=== PATIENT | female | born 1980 | race African-American/Black ===

== ENCOUNTER 2022-06-13 15:02 | Emergency (ER) | payer OTHER, SELFPAY | END 2022-06-14 04:55 | disposition left against medical advice (07) | DX: Z53.21 Procedure and treatment not carried out due to patient leaving prior to being seen by health care provider (principal) | CPT/HCPCS: 99199 ==

== ENCOUNTER 2022-06-20 11:21 | Emergency (ER) | payer OTHER, SELFPAY ==
--- NOTE | ~2022-06-20 | US_ITS ---
EXAMINATION: US OB <= 14 weeks fetus DATE: 06/20/2022 15:32 INDICATION: Right-sided bladder abdominal pain during first trimester TECHNIQUE: Real-time pelvic ultrasound utilizing transabdominal probe was performed. The josef rubin radiologist was not present for the study. COMPARISON: None. FINDINGS: The uterus measures 10.2 x 5.0 x 5.5 cm. The endometrial complex measures 1.7 cm. No evident intraut erine gestational sac. The right ovary measures 4.5 x 2.7 x 2.3 cm. The left ovary measures 3.1 x 1.8 x 1.9 cm. There are sm all anechoic cysts/follicles in both ovaries measuring 1.4 cm diameter on the right and 1.3 cm in elva meter at the left ovary. Vascular flow identified in both ovaries on color Doppler. There is no free fluid in the pelvis. IMPRESSION: 1. No evident intrauterine gestational sac for which differential is early , failed pregnanc y or ectopic . Recommend correlation with serial beta-hCG levels. Reviewed, dictated and finalized at location A. [facility] IMPRESSION: 1. No evident intrauterine gestational sac for which differential is early preg uma, failed or ectopic . Recommend correlation with serial beta-hCG levels.
[2022-06-20 11:27] VITALS: BP 130/85; PULSE 114; RESP 20; TEMP 36.5; O2SAT 100
--- NOTE | 2022-06-20 13:05 | ED.GENADULT ---
HPI - General Adult General Chief complaint: Abdominal Pain Stated complaint: abd pain Time Seen by Provider: 06/20/22 12:57 Source: RN notes reviewed History of Present Illness HPI narrative: Patient presents emergency department from home for abdominal pain. Patient states it is began approximately 2 weeks ago. States the pain is located in the right side of the abdomen does not radiate and states pain became worse last night and today the pain is described as sharp and stabbing. She states she has not taken anything for the pain she denies any fevers or chills nausea vomiting diarrhea or any other symptoms per Related Data Allergies Allergy/AdvReac Type Severity Reaction Status Date / Time No Known Allergies Allergy Verified 06/20/22 11:30 Review of Systems Review of Systems: Gen.: Denies fevers or chills ENT: Denies congestion Respiratory: Denies shortness of breath or cough CV: Denies chest pain or palpitations GI: See HPI denies burning, urgency, frequency or hematuria Musculoskeletal: Denies back pain or muscle pain Neuro: Denies numbness, tingling, weakness or focal weakness Skin: Denies rash Except as documented, all other systems reviewed and negative [facility] Past Medical History Medical History (Updated 06/20/22 @ 17:18 by Neville Castro DO) Patient denies significant medical history Social History Social History (Updated 06/20/22 @ 13:06 by Neville Castro DO) Smoking status: Never smoker Exam Narrative: APPEARANCE: No acute distress, nontoxic, resting in bed HEENT: Normocephalic, atraumatic, OMM RESPIRATORY: No respiratory distress, clear to auscultation bilaterally with no rhonchi wheezing or rales CARDIOVASCULAR: RRR s murmur ABDOMINAL: Soft nondistended tender to palpation in right lower quadrant no tenderness in right upper quadrant, left upper quadrant left lower quadrant no rebound or guarding : Normal external exam, moderate amount of thick white discharge in vaginal canal cervix is closed no vaginal bleeding, the right adnexa is tender to palpation there is no left adnexal tenderness no cervical motion tenderness MUSCULOSKELETAl: Moves all extremities. No clubbing, cyanosis or edema. NEURO: Awake and alert. Following commands, speech normal, no focal deficits SKIN:: Warm, dry. Normal Color PSYCHIATRIC: Normal affect/mood Course Course Emergency Course: Discussed with patient her patient was unaware that she was states that she has a history of 3 prior previous pregnancies all with no complications her youngest child is 14 Patient continues to have tenderness in right lower quadrant on exam : Discussed with Dr. Buchanan presentation work-up at this time agrees with admission to his service for serial exams agrees with plan for Rocephin for UTI Discussed with patient and family results of workup and diagnosis. Discussed need for admission. Patient and family understand and agree to current treatment plan Patient has been unable to find any childcare for her child that is with her. She states that she must leave to find childcare and cannot stay in the hospital. patient has chosen to refuse further care. Risks of an incomplete evaluation and treatment were discussed with the patient including potential for ectopic , appendicitis, or permanent disability were discussed with the patient seems to understand these risks but still desires to refuse further care. Patient recommended to follow up with her SENIOR BEHAVIORAL SCIENTIST in the next possible interval, specifically they?re told they can return to the ED at any time to resume care. Patient was given prescription for Keflex discharge instructions were given I did instruct the patient that she may return anytime and be admitted for continued evaluation Vital Signs Vital signs: Vital Signs Temperature 97.7 F 06/20/22 11:27 Pulse Rate 114 H 06/20/22 11:27 Respiratory Rate 20 06/20/22 11:27 Blood Pressure 130/85
[2022-06-20 13:28] LABS: Basophils Percent Auto 0.4 % (0.2-1.2); Eosinophils Absolute Auto 0.1 K/mm3 (0-0.3); Eosinophils Percent Auto 1.1 % (0-4.4); Hematocrit 39.8 % (37.0-47.0); Hemoglobin 12.9 g/dL (12.0-15.0); Immature Granulocyte Absolute 0.02 K/mm3 (0.00-0.031); Immature Granulocyte Percent A 0.4 % (0-0.5); Lymphocytes Percent Auto 37.7 % (18.3-44.2); Mean Corpuscular HGB Conc 32.4 g/dl (32-36); Mean Corpuscular Hemoglobin 30.7 pg (26-34); Mean Corpuscular Volume 94.8 fl (80-100); Mean Platelet Volume 8.5 fl (7.4-10.4); Monocytes Absolute Auto 0.6 K/mm3 (0.1-0.6); Monocytes Percent Auto 10.4 % (2.6-8.5); Neutrophils Absolute Auto 2.7 K/mm3 (1.3-6.7); Platelet Count Result 371 k/mm3 (150-375); Red Cell Distribution Width 14.7 % (11.5-14.5); White Blood Count 5.3 K/mm3 (4.5-10.0)
[2022-06-20 13:29] LABS: Add Urine Microscopic? YES; Appearance Urine Clear (Clear); Bilirubin Urine Negative (Negative); Blood Urine Negative (Negative); Color Urine Light Yellow (Yellow); Glucose Urine UA Negative (Negative); Ketones Urine Negative (Negative); Leukocyte Esterase Ur 3+ LEU/UL (Negative); Nitrate Urine Negative (Negative); Protein Urine Negative (Negative); Urobilinogen Urine 0.2 mg/dL (<2.0)
[2022-06-20 13:39] LABS: Bacteria Urine Trace /hpf; Mucus Urine Rare /lpf; Squamous Epithelial Cell Urine Few /hpf (Few)
[2022-06-20] MEDS: SODIUM CHLORIDE 0.9% IV 1,000 ML 999 ML IV CONT (14:07)
[2022-06-20 14:24] VITALS: BP 123/75; PULSE 79; RESP 18; O2SAT 100
[2022-06-20 14:31] VITALS: BP 121/83; PULSE 86; RESP 18; O2SAT 98
[2022-06-20 14:40] LABS: Pregnancy On Board Control Positive; Urine Pregnancy Test Positive
[2022-06-20 14:55] LABS: Alanine Aminotransferase 18 U/L (6-35); Albumin Level 4.4 g/dL (3.5-5.1); Alkaline Phosphatase 64 U/L (38-126); Anion Gap 7 mmol/L (8-16); Aspartate Amino Transferase 25 U/L (14-36); Bilirubin,Total 0.4 mg/dL (0.2-1.3); Blood Urea Nitrogen 7 mg/dL (7-17); Calcium 8.4 mg/dL (8.4-10.2); Carbon Dioxide 24 mmol/L (22-30); Chloride 106 mmol/L (98-107); Estimated CRCL calculation 118 ml/min; Estimated Glomerular Filt Rate > 60; Glucose 85 mg/dL (65-110); Lipase 58 U/L (23-300); Potassium 4.2 mmol/L (3.4-5.0); Sodium 137 mmol/L (137-145)
[2022-06-20 17:09] VITALS: BP 140/91; PULSE 94; RESP 19; O2SAT 100
== END 2022-06-20 17:15 | disposition left against medical advice (07) ==
PROVIDERS: Emergency Provider Emergency Medicine
DX: O26.891 Other specified pregnancy related conditions, first trimester (principal); R10.31 Right lower quadrant pain; O23.41 Unspecified infection of urinary tract in pregnancy, first trimester; Z3A.01 Less than 8 weeks gestation of pregnancy
CPT/HCPCS: 36415; 76801; 80053; 81001; 81025; 83690; 84702; 85025; 87070; 87086; 87491; 87591; 87808; 96360; 99284; J7030